=== PATIENT | male | born 1955 | race Two or more races ===

== ENCOUNTER → 2024-04-04 | Emergency (ER) | payer OTHER ==
[~2024-04-04] VITALS: Ht 167.6 cm; Wt 77.1 kg
[~2024-04-04] MED LIST: 0.9 % SODIUM CHLORIDE 1,000 ML IV SCH; ANTIVERT25 M2 PO; FAMOTIDINE/PF 20 MG in 0.9 % SODIUM CHLORIDE 8 ML IV PUSH STA; FAMOTIDINE/PF 20 MG/2 ML VIAL ONE; LOSARTAN POTASS50 MG PO; MECLIZINE HCL 25 MG TABLET PO ONE; ONDANSETRON HCL 2 MG/ML VIAL IV ONE; ONDANSETRON HCL 2 MG/ML VIAL ONE
[2024-04-04 11:46] LABS: HEMATOCRIT 42.9 % (39.0-48.0); HEMOGLOBIN 14.7 g/dL (13-16.00); MEAN CELL VOLUME 100.3 fL (80.0-100.00); MEAN CORPUSCULAR HEMOGLOBIN 34.3 pg (27.00-32.0); MEAN CORPUSCULAR HGB CONC 34.2 g/dl (32.0-36.0); PLATELET COUNT 245 K/uL (150-450); RED BLOOD COUNT 4.28 M/uL (4.00-6.00)
[2024-04-04 13:08] LABS: ALBUMIN 3.9 gm/dL (3.4-5.0); BILIRUBIN TOTAL 0.49 mg/dL (0.3-1.2); CALCIUM 10.5 mg/dL (8.5-10.1); CREATININE SERUM 1.01 mg/dL (0.70-1.30); GFR 73.68; GLOBULINA 4.5 G/DL (2.4-3.5); TOTAL PROTEIN 8.4 gm/dL (6.4-8.2)
[2024-04-04 13:09] LABS: POTASSIUM 4.09 mEq/L (3.5-5.1)
== END | disposition home or self-care (01) ==
LOC: ER 10:33
PROVIDERS: General Practice
DX: R42 Dizziness and giddiness (principal); I10 Essential (primary) hypertension; Z20.822 Contact with and (suspected) exposure to COVID-19
CPT/HCPCS: 36415; 70450; 93005; 96365; 99284; J7030